=== PATIENT | female | born 1990 | race Caucasian/White ===

== ENCOUNTER 2017-07-01 10:19 | Emergency (ER) | payer OTHER ==
[2017-07-01] MEDS ORDERED: DEXAMETHASONE 10 MG/ML VIAL PO STA (12:07)
[2017-07-01] MEDS ORDERED: hydrOXYzine PAMOATE 25 MG CAPSULE PO STA (12:07)
[2017-07-01] MEDS ORDERED: CHERRY SYRUP 10 ML UDC PO ONE (12:16)
[2017-07-01 12:19] LABS: BILIRUBIN,URINE NEGATIVE (NEGATIVE); GLUCOSE, URINE (UA) NEGATIVE (NEGATIVE); KETONES,URINE (UA) NEGATIVE (NEGATIVE); LEUKOCYTE ESTERASE, URINE MODERATE (NEGATIVE); NITRITE,URINE POSITIVE (NEGATIVE); OCCULT BLOOD,URINE LARGE (NEGATIVE); PROTEIN,URINE NEGATIVE (NEGATIVE); UROBILINOGEN,URINE 0.2 (NORMAL) E.U./dL (NORMAL)
[2017-07-01 12:21] LABS: CLARITY,URINE CLOUDY (CLEAR); HCG UR QUAL NEGATIVE
[2017-07-01 12:33] LABS: BACTERIA,URINE Moderate /HPF (None Seen); CRYSTALS,URINE 0-2 Calcium Oxalate /LPF; RBC,URINE TNTC /HPF (0-5); SQUAMOUS EPITHELIAL CELL,UR FEW Squamous (<= Few)
[2017-07-01] MEDS ORDERED: NITROFURANTOIN MACRO 100 MG CAPSULE PO STA (13:03)
--- NOTE | 2017-07-01 13:20 | ED Physician Documentation ---
PD HPI SKIN - Stated complaint Stated Complaint: ALLERGIC REACTION - Chief complaint Chief Complaint: Allergic Rx - History obtained from History obtained from: Patient - History of Present Illness Timing - onset: How many days ago (3) Timing - details: Still present Location: Face, Neck, Bodywide Quality / character: Itchy Improved by: Benadryl Associated symptoms: Urinary sx Contributing factors: Exposed to medication Similar symptoms before: No diagnosis - Treatment prior to arrival Treatment prior to arrival: Benadryl 25 mg four hours ago. - Additional information Additional information: The patient is a 27-year-old female who presents with a pruritic rash that started 3 days ago and has persisted since that time. She noticed puffiness of her face last night and facial redness today. She took 25 mg Benadryl this morning, and it provided transient improvement, although she states it makes her feel anxious. She denies sore throat or difficulty swallowing. She denies cough or dyspnea. She does report fatigue, anxiety, and has had dysuria. 3 days ago she started taking Pyridium and drinking cranberry juice for suspected urinary tract infection. She also has been taking Imodium for the past 3 days because of diarrhea, which has since resolved. She reports history of similar rash in the past, but is uncertain the cause. She thinks it may have been anxiety induced. Her last menstrual period ended yesterday. She is visiting from out of town, having flown here 6 days ago. Review of Systems Constitutional: reports: Fatigue. denies: Fever Eyes: denies: Irritation Ears: denies: Tinnitus/ringing Nose: denies: Congestion Throat: denies: Sore throat Cardiac: denies: Chest pain / pressure Respiratory: denies: Dyspnea, Cough GI: reports: Diarrhea. denies: Abdominal Pain, Nausea, Vomiting : reports: Dysuria, LMP (Ended yesterday.) Skin: reports: Rash Musculoskeletal: denies: Back pain, Extremity swelling Neurologic: denies: Headache PD PAST MEDICAL HISTORY - Past Medical History Past Medical History: Yes Respiratory: None Neuro: CVA Endocrine/Autoimmune: None Psych: Depression, Anxiety - Past Surgical History Past Surgical History: Yes General: Other - Present Medications Home Medications: Ambulatory Orders Medication Instructions Recorded Confirmed Nitrofurantoin [Macrobid] 100 mg PO BID #10 capsule 07/01/17 Quetiapine Fumarate [Seroquel] 12.5 mg PO DAILY PRN 07/01/17 07/01/17 Venlafaxine [Effexor] 37.5 mg PO TID 07/01/17 07/01/17 busPIRone [Buspar] 5 mg PO BID 07/01/17 07/01/17 hydrOXYzine PAMOATE [Vistaril] 25 mg PO Q6H PRN #20 capsule 07/01/17 predniSONE [Prednisone] 30 mg PO DAILY #12 tablet 07/01/17 traZODone [Desyrel] 150 mg PO HS 07/01/17 07/01/17 - Allergies Allergies/Adverse Reactions: Allergies Allergy/AdvReac Type Severity Reaction Status Date / Time codeine Allergy Unknown Verified 07/01/17 10:31 diphenhydramine Allergy Unknown Verified 07/01/17 10:31 [From Benadryl] morphine Allergy Unknown Verified 07/01/17 10:31 prochlorperazine Allergy Unknown Verified 07/01/17 10:31 [From Compazine] - Social History Does the pt smoke?: No Smoking Status: Never smoker Does the pt drink ETOH?: No Does the pt have substance abuse?: No PD ED PE NORMAL - Vitals Vital signs reviewed: Yes (normal) - General General: Alert and oriented X 3, Well developed/nourished - HEENT HEENT: Atraumatic, EOMI, Moist mucous membranes, Pharynx benign - Neck Neck: No adenopathy, No JVD - Cardiac Cardiac: RRR, No murmur - Respiratory Respiratory: No respiratory distress, Clear bilaterally - Abdomen Abdomen: Soft, Non tender - Back Back: No CVA TTP - Derm Derm: Other (Mild erythema of the face, neck, and upper chest, with fine maculopapular rash.) - Extremities Extremities: No edema, No calf tenderness / cord - Neuro Neuro: Alert and oriented X 3, No motor deficit, No sensory deficit Results - Vitals Vitals: Oxygen O2 Source Room air - Labs Labs: Microbiology 07/01/17 11:45 Urine Culture - Final Urine,Clean Catch Klebsiella Pneumoniae Laboratory Tests 07/01/17 11:45 Urine Color YELLOW Urine Clarity CLOUDY Urine pH 6.[address] 1.015 Urine Protein NEGATIVE Urine Glucose (UA) NEGATIVE Urine Ketones NEGATIVE Urine Occult Blood LARGE H Urine Nitrite POSITIVE H Urine Bilirubin NEGATIVE Urine Urobilinogen 0.2 (NORMAL) Ur Leukocyte Esterase MODERATE H Urine RBC TNTC H Urine WBC >25 H Ur Squamous Epith Cells FEW Squamous Urine Crystals 0-2 Calcium Oxalate Urine Bacteria Moderate H Ur Microscopic Review INDICATED Urine Culture Comments INDICATED Urine HCG, Qual NEGATIVE PD MEDICAL DECISION MAKING - ED course Complexity details: reviewed results, re-evaluated patient, considered differential, d/w patient, d/w family ED course: The patient's presentation is significant for allergic rash, probably caused by either Pyridium or Imodium, since the patient started those 2 medications 3 days ago prior to the onset of her rash. Her urinalysis is positive for urinary tract infection. Her presentation does not suggest sepsis or pyelonephritis. Treatment in the emergency department included administration of nitrofurantoin 100 mg orally, dexamethasone 10 mg orally, and hydroxyzine 25 mg orally. She is being discharged with prescriptions for Macrobid, Vistaril, and for prednisone. I discussed with her and her the expected course of illness , antibiotic treatment and outpatient follow-up, as well as potentially worrisome signs or symptoms that should prompt reevaluation in the emergency department. Departure - Departure Disposition: 01 Home, Self Care Clinical Impression: Allergic urticaria UTI (urinary tract infection) Qualifiers: Urinary tract infection type: acute cystitis Hematuria presence: with hematuria Qualified Code(s): N30.01 - Acute cystitis with hematuria Condition: Stable Instructions: ED Allergic Reaction General Other Prescriptions: hydrOXYzine PAMOATE [Vistaril] 25 mg PO Q6H PRN #20 capsule PRN Reason: Itching Nitrofurantoin [Macrobid] 100 mg PO BID #10 capsule predniSONE [Prednisone] 30 mg PO DAILY #12 tablet Comments: Take Macrobid twice daily as prescribed. Drink plenty of fluids, including cranberry juice. You can use Tylenol or ibuprofen if needed for discomfort or fever. Take Vistaril as prescribed as needed for itching. Follow up with your primary physician within 1-2 weeks. Call to schedule appointment. Return to the emergency department if you develop increasing rash or itching, shortness of breath, increasing abdominal pain, fever with shaking chills, or otherwise worsening symptoms. Discharge Date/Time: 07/01/17 13:37
[2017-07-01 13:29] VITALS: BP 114/83
== END 2017-07-01 13:37 | disposition home or self-care (01) ==
LOC: ED 10:19
DX: L50.0 Allergic urticaria (principal); N30.01 Acute cystitis with hematuria; Z86.73 Personal history of transient ischemic attack (TIA), and cerebral infarction without residual deficits
CPT/HCPCS: 81001; 81025; 87077; 87086; 87181; 99283; A9270; 81003